=== PATIENT | male | born 1970 | race Caucasian/White ===

== ENCOUNTER → 2020-12-18 | Outpatient (CLI) | payer BC ==
--- NOTE | 2020-12-18 15:28 | US ---
EXAMINATION TYPE: US carotid duplex BILAT DATE OF EXAM: 12/18/2020 COMPARISON: US 2015 CLINICAL HISTORY: 50-year-old male I65.23 Occlusion and stenosis of bilateral carotid. TECHNIQUE: Carotid duplex ultrasound examination. Indirect Doppler criteria was utilized. FINDINGS: EXAM MEASUREMENTS: RIGHT: Peak Systolic Velocity (PSV) cm/sec ----- Right CCA: 82.0 ----- Right ICA: 93.0 ----- Right ECA: 118.0 ICA/CCA ratio: 1.1 RIGHT: End Diastole cm/sec ----- Right CCA: 24.8 ----- Right ICA: 39.1 ----- Right ECA: 23.1 LEFT: Peak Systolic Velocity (PSV) cm/sec ----- Left CCA: 92.4 ----- Left ICA: 87.4 ----- Left ECA: 124.0 ICA/CCA ratio: 0.9 LEFT: End Diastole cm/sec ----- Left CCA: 26.8 ----- Left ICA: 28.9 ----- Left ECA: 21.6 VERTEBRALS (direction of flow): Right Vertebral: Antegrade Left Vertebral: Antegrade Rhythm: Normal Is Consultant notes: Bilateral intimal thickening, no elevated velocities, no significant stenosis. Right Thyroid: 1.8 x 1.2 x 1.5cm peripherally calcified nodule IMPRESSION: 1. No hemodynamically significant internal carotid artery stenosis on either side. 2. Incidental 1.8 cm peripherally calcified TR5 right thyroid lobe nodule. FNA can be performed. Co nsider thyroid ultrasound to assess the remainder of the gland prior to sampling. . Criteria for Assigning % of Stenosis / Diameter reduction (Estimation based on the indirect measurements of the internal carotid artery velocities (ICA PSV). 1. Normal (no stenosis)=ICA PSV < 125 cm/s: ratio < 2.0: ICA EDV<40 cm/s. 2. Less than 50% stenosis=ICA PSV < 125 cm/s: ratio < 2.0: ICA EDV<40 cm/s. 3. 50 to 69% stenosis=ICA PSV of 125 to 230 cm/s: ration 2.0 ? 4.0: ICA EDV 40-100 cm/s. 4. Greater than 70% stenosis to near occlusion= ICA PSV > 230 cm/s: ratio > 4.0: ICA EDV > 100 cm/s. 5. Near occlusion= ICA PSV velocities may be low or undetectable: variable ratio and ICA EDV. 6. Total occlusion=unable to detect flow.
== END ==
LOC: RADUSWWP 14:38
PROVIDERS: ATTEND Family Medicine
DX: Z03.89 Encounter for observation for other suspected diseases and conditions ruled out (principal)
CPT/HCPCS: 93880

== ENCOUNTER → 2020-12-20 | Outpatient (CLI) | payer BC ==
--- NOTE | 2020-12-20 11:43 | FL ---
EXAMINATION TYPE: FL barium swallow w video DATE OF EXAM: 12/20/2020 MODIFIED SWALLOW / DEGLUTITION STUDY CLINICAL HISTORY: Dysphagia. TECHNIQUE: Deglutition study is performed utilizing thin liquid barium, barium thick applesauce, and barium coated cracker. 44 seconds of fluoro time and 0 images obtained. COMPARISON: None. FINDINGS: The oral and pharyngeal phases show satisfactory initiation and propagation with all modali ties tested. Normal mastication is seen with solid modalities tested. There is no evidence of penet ration or aspiration with any modality tested. No significant pharyngeal residue was appreciated. IMPRESSION: Normal deglutition study. Please refer to speech therapist notes for further details if necessary.
== END ==
LOC: RADFLMAIN 10:53
PROVIDERS: ATTEND Family Medicine
DX: R13.10 Dysphagia, unspecified (principal)
CPT/HCPCS: 74230

== ENCOUNTER → 2021-01-07 | Outpatient (CLI) | payer BC ==
--- NOTE | 2021-01-07 11:12 | US ---
EXAMINATION TYPE: US thyroid st tissue head/neck DATE OF EXAM: 01/07/2021 COMPARISON: Ultrasound 12/18/2020 CLINICAL HISTORY: E04.1 thyroid nodule. GLAND SIZE: Right Lobe: 5.0 x 1.4 x 2.6 cm Overall Parenchyma: homogenous Left Lobe: 4.4 x 1.3 x 1.2 cm Overall Parenchyma: homogeneous Isthmus Thickness: 0.4 cm NODULES RIGHT: # of nodules measured on right: 1 1. 1.6 X 1.4 x 1.4 cm, upper mid, solid or almost completely solid, anechoic nodule, which is wider than tall, with smooth margins, without echogenic foci.HIGHLY CALCIFIED NODULE LEFT: # of nodules measured on left: 0 ISTHMUS: # of nodules measured in the isthmus: 0 Bilateral neck scanned, no evidence of lymphadenopathy. IMPRESSION: Highly suspicious right-sided thyroid nodule, fine-needle aspiration recommended. 2017 ACR TI-RADS LEVEL: TI-RADS 5 - Highly Suspicious: Follow if > 0.5 cm, FNA if > 1.0 cm *Highest TI-RADS level nodule reported
== END | disposition home or self-care (01) ==
LOC: RADUSWWP 10:13
PROVIDERS: ATTEND Family Medicine
DX: E04.1 Nontoxic single thyroid nodule (principal)
CPT/HCPCS: 76536

== ENCOUNTER → 2021-05-16 | Day surgery (SDC) | payer BC ==
[2021-05-13 15:35] VITALS: BMI 29.8
[~2021-05-16] MED LIST: LACTATED RINGERS 1,000 ML IV SCH; LIDOCAINE 1% (10MG/ML) FOR IV START INTRADERMA PRN; LIDOCAINE 1% INJ 10MG/ML (20 ML MDV) ONE; PROPOFOL 10 MG/ML 20 ML VIAL IV ONE
[2021-05-16 10:36] VITALS: RESP 16; TEMP 97.4
--- NOTE | 2021-05-16 11:31 | P.PCN ---
Date of Procedure: 05/16/21 Procedure(s) Performed: Brief history: Patient is a pleasant 50-year-old white male scheduled for an elective upper endoscopy as well as colonoscopy as a part of evaluation of intermittent dysphagia to solids and change in bowel habits Procedure performed: Esophagogastroduodenoscopy with biopsy Colonoscopy Preoperative diagnosis: Intermittent dysphagia to solids Change in bowel habits Anesthesia: MAC Procedure: After informed consent was obtained from the patient was brought into the endoscopy unit and IV sedation was administered by anesthesia under continuous monitoring. Initially upper endoscopy was done. The Olympus GF 160 video endoscope was inserted inserted into the mouth and esophagus intubated without any difficulty and was gradually advanced into the stomach and duodenum and carefully examined. The bulb and second part of the duodenum appeared normal. The scope was then withdrawn into the stomach adequately insufflated with air and upon careful examination the antrum had mild gastritis and biopsies were done from this area. The body, cardia and fundus appeared normal. The scope was then withdrawn into the esophagus. The GE junction was located at 40 cm to the incisors. It appeared regular with no erythema erosions or ulcerations. There was some thickened mucosal folds and noted in the mid and distal esophagus and these were biopsied to rule out eosinophilic esophagitis. Rest of the esophagus appeared normal. Patient tolerated the procedure well. At this time the patient continued to remain sedation. Initial digital rectal examination was normal. Olympus CF 160 video colonoscope was then inserted into the rectum and gradually advanced to the cecum without any difficulty. Careful examination was performed as the scope was gradually being withdrawn. The prep was excellent. The cecum, ascending colon, transverse colon, descending colon, sigmoid colon and rectum appeared normal. Retroflexion was performed in the rectum and no lesions were noted. Patient tolerated the procedure well. Impression: 1. Upper endoscopy revealed mild antral gastritis and mild thickening of the distal esophageal folds suspicious for eosinophilic esophagitis status post multiple biopsies 2.: Colonoscopy was within normal limits with no evidence of colitis or colorectal neoplasia Recommendations: Findings of this examination were discussed with the patient as well as his family. He was advised to follow with the biopsy results. She can have a rep eat screening colonoscopy in 10 years.
[2021-05-16 11:49] VITALS: BP 132/82; PULSE 49
== END ==
LOC: ORWHC2ENDO 10:08
PROVIDERS: ATTEND Internal Medicine Gastroenterology
DX: K29.50 Unspecified chronic gastritis without bleeding (principal); K20.0 Eosinophilic esophagitis; R19.4 Change in bowel habit
CPT/HCPCS: 88305; 45378; 43239; J2001; J2704

== ENCOUNTER → 2022-08-24 | Outpatient (CLI) | payer BC ==
--- NOTE | 2022-08-24 16:17 | US ---
EXAMINATION TYPE: US thyroid st tissue head/neck DATE OF EXAM: 08/24/2022 COMPARISON: NONE CLINICAL HISTORY: E04.1 single thyroid nodule. f/u GLAND SIZE: Right Lobe: 4.9 x 2.0 x 1.9 cm Overall Parenchyma: heterogenous Left Lobe: 3.5 x 1.1 x 1.3 cm Overall Parenchyma: homogeneous Isthmus Thickness: 0.5 cm NODULES RIGHT: # of nodules measured on right: 1 1. 1.4 X 1.6 x 1.8 cm, mid , solid or almost completely solid, hypoechoic nodule, which is wider th an tall, with smooth margins, peripherally calcified. TR- 4. Prior size: 1.6 x 1.4 x 1.4 cm LEFT: # of nodules measured on left: 0 ISTHMUS: # of nodules measured in the isthmus: 0 Bilateral neck scanned, no evidence of lymphadenopathy. IMPRESSION: Stable peripheral calcified right thyroid lobe nodule. Fine-needle aspiration is again recommended ho wever technically challenging and may not be possible due to peripheral calcification.
== END | disposition home or self-care (01) ==
LOC: RADUSWWP 14:06
PROVIDERS: ATTEND Family Medicine
DX: E04.1 Nontoxic single thyroid nodule (principal)
CPT/HCPCS: 76536

== ENCOUNTER → 2022-08-27 | Outpatient (CLI) | payer BC ==
--- NOTE | 2022-08-27 11:52 | CA ---
Stress Echo Report Silvio Bellamy Age: 52 Gender: M : 1970 Exam Date: 08/27/2022 09:25 Exam Location: [facility] Ht (in): 66 Wt (lb): 187 Ordering Physician: Darinel Maciel MD Referring Physician: Janell DELACRUZ Wheel Adjuster: NOEMY Technologist Procedure CPT: Indication: R06.00 Dyspnea ICD-9 Codes: Rhythm: Patient History: Shortness of breath Cardiac Medications: Medications in past 24 hours: Contrast: Stress Results Protocol: Jason Total dose(mL): Exercise Duration (min:sec): Max ST Depression (mm): Angina Score: Borja Score: METS: 13.5 Resting HR: 56 Resting BP: / Peak HR: 150 Peak BP: 192 / 94 Max Predicted HR: 170 88 % Max Predicted HR Target HR: 145 Double Product: [id number] Stress Summary: BP Response: Reason for Termination: MAX EXERTION/TARGET HR Cardiac Symptoms: DIFFICULTY IN BREATHING ECG Analysis Resting ECG: Stress ECG: Arrhythmia: Echo Analysis Resting Echo: Peak Echo Analysis: MEASUREMENTS (Male/Female) Normal Values CONCLUSIONS Excellent exercise tolerance Normal EKG in response to exercise Normal echocardiogram in response to exercise Dr. Tejas Koehler MD (Electronically Signed) Final Date: 27 August 2022 11:51
== END | disposition home or self-care (01) ==
LOC: RADNMMAIN 08:47
PROVIDERS: ATTEND Family Medicine
DX: R06.00 Dyspnea, unspecified (principal)
CPT/HCPCS: 93351

== ENCOUNTER → 2024-08-03 | Outpatient (CLI) | payer BC ==
--- NOTE | 2024-08-03 15:07 | US ---
EXAMINATION TYPE: US thyroid st tissue head/neck DATE OF EXAM: 08/03/2024 COMPARISON: Thyroid ultrasound same back to 01/06/2021 CLINICAL INDICATION: Male, 54 years old with history of E04.1 THYROID NODULE SINGLE; thyroid nodule TECHNIQUE: Grayscale and color Doppler imaging of the thyroid gland. FINDINGS: GLAND SIZE: Right Lobe: 4.5 x 1.7 x 2.1 cm Overall Parenchyma: homogeneous Left Lobe: 3.9 x 1.2 x 1.4 cm Overall Parenchyma: homogeneous Isthmus Thickness: 0.3 cm NODULES RIGHT: # of nodules measured on right: 1 1. 1.7 X 1.4 x 1.3 cm, mid , Prior size: 1.7 x 1.6 x 1.3 cm TIRADS Score: 5 TIRADS Category 4: Composition: Solid or almost completely solid (2 points). Echogenicity: Cannot be determined (1 point). Shape: Wider than tall (0 points). Margin: Smooth (0 points). Echogenic foci: Peripheral (rim) calcifications (2 points) Recommendation: If >1.5cm: FNA; If >1cm: Follow up at 1,2, 3,5 years LEFT: # of nodules measured on left: 0 ISTHMUS: # of nodules measured in the isthmus: 0 Bilateral neck scanned, no evidence of lymphadenopathy. IMPRESSION: Stable right thyroid lobe nodule with rim calcification dating back to at least 2020. [facility], , 08/03/2024 3:04 PM
== END | disposition home or self-care (01) ==
LOC: RADUSWWP 14:13
PROVIDERS: ATTEND Family Medicine
DX: E04.1 Nontoxic single thyroid nodule (principal)
CPT/HCPCS: 76536